=== PATIENT | male | born 2000 | race African-American/Black ===

== ENCOUNTER 2021-11-15 02:20 | Emergency (ER) | payer SELFPAY ==
[~2021-11-15] VITALS: Ht 175.3 cm; Wt 90.9 kg
[2021-11-15 02:22] VITALS: BP 120/41
[2021-11-15] MEDS ORDERED: LIDOcaine 1% W/epiNEPHrine 1:100,000 20ml vial IJ ONE (02:30)
[2021-11-15] MEDS ORDERED: AMOX-580 PO (02:48)
[2021-11-15] MEDS ORDERED: LIDOcaine 1% W/epiNEPHrine 1:100,000 20ml vial SQ STA (02:59)
--- NOTE | 2021-11-15 04:43 | NUR ---
Patient visual acuity assesses before discharge. Pt wa able to see clearly number of fingers held up approx 10 feet away
[2021-11-21] MEDS ORDERED: AMOX-117 PO (00:10)
== END 2021-11-15 04:45 ==
LOC: ER 02:21
DX: S81.811A Laceration without foreign body, right lower leg, initial encounter (principal); S31.119A Laceration without foreign body of abdominal wall, unspecified quadrant without penetration into peritoneal cavity, initial encounter; Y04.0XXA Assault by unarmed brawl or fight, initial encounter; Y93.89 Activity, other specified; Y92.89 Other specified places as the place of occurrence of the external cause; Y99.8 Other external cause status
CPT/HCPCS: 12004; 99284